=== PATIENT | male | born 1960 | race African-American/Black ===

== ENCOUNTER 2021-06-21 11:46 | Emergency (ER) | payer MEDICARE, OTHER ==
[~2021-06-21 11:46] MED LIST: BREO ELLIPTA 11 EACH INH; BYSTOLIC10 MG PO; LIPITOR80 MG PO; NASONEX17 GM; NORVASC 5 MG TAB5 MG PO; PLAVIX 75 MG TA75 MG PO; PRINIVIL5 MG PO; PROTONIX40 MG PO; PROVENTIL HFA6.7 GM INH
[2021-06-21 12:35] LABS: HEMOGLOBIN 17.3 gm/dl (14.0-17.5); RED BLOOD COUNT 5.35 M/UL (4.20-5.50); WHITE BLOOD COUNT 13.1 K/UL (4.5-11.0)
[2021-06-21 13:00] LABS: BUN/CREATININE RATIO 9 (0-10)
== END 2021-06-21 13:53 | disposition home or self-care (01) ==
LOC: ER1 11:46
PROVIDERS: Physician Assistant
DX: R07.89 Other chest pain (principal); I25.10 Atherosclerotic heart disease of native coronary artery without angina pectoris; I13.10 Hypertensive heart and chronic kidney disease without heart failure, with stage 1 through stage 4 chronic kidney disease, or unspecified chronic kidney disease; N18.9 Chronic kidney disease, unspecified; Z20.822 Contact with and (suspected) exposure to COVID-19; I25.2 Old myocardial infarction; Z88.1 Allergy status to other antibiotic agents; Z88.6 Allergy status to analgesic agent
CPT/HCPCS: 71045; 80048; 80076; 82550; 82553; 83874; 83880; 84484; 85025; 93005; 99285; U0002

== ENCOUNTER 2021-12-02 09:02 | Emergency (ER) | payer MEDICARE, OTHER ==
[2021-12-02 09:29] LABS: HEMOGLOBIN 16.1 gm/dl (14.0-17.5); RED BLOOD COUNT 5.05 M/UL (4.20-5.50); WHITE BLOOD COUNT 18.3 K/UL (4.5-11.0)
[2021-12-02 09:56] LABS: BUN/CREATININE RATIO 16 (0-10)
[2021-12-02] MEDS ORDERED: OMNICEF 300 MG300 MG PO (11:29)
[2021-12-02] MEDS ORDERED: ZITHROMAX250 MG PO (11:29)
== END 2021-12-02 11:44 | disposition home or self-care (01) ==
LOC: ER1 09:02
PROVIDERS: Student in an Organized Health Care Education/Training Program
DX: J18.9 Pneumonia, unspecified organism (principal); I11.9 Hypertensive heart disease without heart failure; E78.5 Hyperlipidemia, unspecified; Z20.822 Contact with and (suspected) exposure to COVID-19; I25.2 Old myocardial infarction; Z95.5 Presence of coronary angioplasty implant and graft; Z87.891 Personal history of nicotine dependence
CPT/HCPCS: 0240U; 71045; 80053; 82550; 82553; 84484; 85025; 85379; 93005; 99285

== ENCOUNTER → 2022-01-21 | Outpatient (CLI) | payer MEDICARE, OTHER ==
[~2022-01-21] MED LIST changes: +OMNICEF 300 MG300 MG PO; +ZITHROMAX250 MG PO
== END ==
LOC: KOH-I 09:06
DX: M47.817 Spondylosis without myelopathy or radiculopathy, lumbosacral region (principal); M51.36 Other intervertebral disc degeneration, lumbar region
CPT/HCPCS: 72148